=== PATIENT | female | born 1985 | race Two or more races ===

== ENCOUNTER 2019-04-02 03:06 | Observation (INO) | payer MEDICAID ==
[~2019-04-02] VITALS: Ht 152.4 cm; Wt 63.0 kg
[2019-04-02] MEDS ORDERED: LACTATED RINGER'S 1,000 ML IV ONE (03:43)
[2019-04-02] MEDS ORDERED: LACTATED RINGER'S 1,000 ML IV SCH (03:43)
[2019-04-02] MEDS ORDERED: TERBUTALINE SULFATE 1 MG/ML 1ML VIAL SC SCH (03:45)
[2019-04-02] MEDS ORDERED: BETAMETHASONE ACET (6MG/ML) 5ML VIAL IM SCH (10:00)
[2019-04-03] MEDS ORDERED: PREN-96 PO (08:12)
== END 2019-04-02 05:19 | disposition home or self-care (01) | DRG 563 ==
LOC: LDRP 03:06
PROVIDERS: ADMIT Specialist; ATTEND Specialist
DX: O60.03 Preterm labor without delivery, third trimester (principal); Z3A.36 36 weeks gestation of pregnancy
CPT/HCPCS: 59025; 81002; G0378; J3105

== ENCOUNTER 2019-04-03 06:30 | Observation (INO) | payer MEDICAID ==
[~2019-04-03] VITALS: Ht 157.5 cm; Wt 64.9 kg
[2019-04-03] MEDS ORDERED: LACTATED RINGER'S 1,000 ML IV SCH (07:01)
[2019-04-03] MEDS ORDERED: BETAMETHASONE ACET (6MG/ML) 5ML VIAL IM ONE (07:15)
[2019-04-03] MEDS: TERBUTALINE SULFATE 1 MG/ML 1ML VIAL SC SCH ×2 (07:19→07:47)
[2019-04-03] MEDS ORDERED: PREN-96 PO (08:12)
== END 2019-04-03 08:30 | disposition home or self-care (01) | DRG 566 ==
LOC: LDRP 06:30
PROVIDERS: ADMIT Specialist; ATTEND Specialist
DX: O62.9 Abnormality of forces of labor, unspecified (principal); O23.43 Unspecified infection of urinary tract in pregnancy, third trimester; Z3A.36 36 weeks gestation of pregnancy
CPT/HCPCS: 59025; 81002; 96372; G0378; J0702; J3105; 96374; 96375

== ENCOUNTER 2019-04-04 07:36 | Observation (INO) | payer MEDICAID ==
[~2019-04-04] VITALS: Ht 157.5 cm; Wt 62.1 kg
[~2019-04-04 07:36] MED LIST: PREN-96 PO
[2019-04-04] MEDS ORDERED: BETAMETHASONE ACET (6MG/ML) 5ML VIAL IM ONE (08:00)
[2019-04-04] MEDS ORDERED: TERBUTALINE SULFATE 1 MG/ML 1ML VIAL SC SCH (08:45)
== END 2019-04-04 11:15 | disposition home or self-care (01) | DRG 566 ==
LOC: LDRP 07:36
PROVIDERS: ADMIT Obstetrics & Gynecology; ATTEND Obstetrics & Gynecology
DX: O62.9 Abnormality of forces of labor, unspecified (principal); O23.43 Unspecified infection of urinary tract in pregnancy, third trimester; Z3A.36 36 weeks gestation of pregnancy
CPT/HCPCS: 59025; 76805; 81002; 96372; G0378; J3105